=== PATIENT | female | born 1975 ===

== ENCOUNTER 2021-01-31 08:00 | Day surgery (SDC) | payer OTHER | END 2021-01-31 13:50 | disposition home or self-care (01) | LOC: AMB-ENDOS 08:00 | PROVIDERS: ATTEND Surgery | DX: D12.0 Benign neoplasm of cecum (principal); Z20.822 Contact with and (suspected) exposure to COVID-19; Z12.11 Encounter for screening for malignant neoplasm of colon ==

== ENCOUNTER 2021-04-15 09:25 | Inpatient (IN) | payer OTHER ==
[~2021-04-15 09:25] MED LIST: SINGULAIR10 MG PO
[2021-04-16] MEDS ORDERED: ABATINEX680 MG (08:40)
[2021-04-16] MEDS ORDERED: DSS100 MG (08:40)
[2021-04-16] MEDS ORDERED: KETO10TA2 PO (12:28)
[2021-04-16] MEDS ORDERED: NEURONTIN300 MG PO (12:28)
[2021-04-16] MEDS ORDERED: ULTRAM50 MG PO (12:28)
== END 2021-04-16 15:03 | disposition home or self-care (01) | DRG 761 ==
LOC: CIR.AMB 09:25 → SURH 18:48
PROVIDERS: ADMIT Surgery; ATTEND Surgery
PROC: 3E0T3BZ Introduction of Anesthetic Agent into Peripheral Nerves and Plexi, Percutaneous Approach (ICD-10-PCS; 2021-04-15)
PROC: 0JQC3ZZ Repair Pelvic Region Subcutaneous Tissue and Fascia, Percutaneous Approach (ICD-10-PCS; principal; 2021-04-15 17:00)
DX: N81.6 Rectocele (principal); D12.0 Benign neoplasm of cecum; K57.30 Diverticulosis of large intestine without perforation or abscess without bleeding